=== PATIENT | female | born 1970 | race Caucasian/White ===

== ENCOUNTER → 2017-01-26 | Outpatient (CLI) | payer BC ==
[~2017-01-26] MED LIST: IOHEXOL 300 MG/ML 50 ML BTL (for RAD DIAG) OTHER ONE
--- NOTE | 2017-01-26 18:02 | RADRPT ---
EXAM DATE/TIME: 01/26/2017 15:24 [place] COMPARISON: No previous studies available for comparison. INDICATIONS : Fistula buttock FLUORO TIME: 1.3 minutes IMAGE COUNT: 2 MEDICAL HISTORY : fistula left buttock SURGICAL HISTORY : None. ENCOUNTER: Initial ACUITY: 1 week PAIN SCORE: 0/10 LOCATION: Left buttock FINDINGS: Under sterile condition and using aseptic technique and fluoroscopic guidance positive contrast was i njected into the fistula. The fistula along the left gluteal cleft was cannulated with a flexible 4 K[place] catheter. The cathet er could only be advanced to a centimeter or less into the opening. Omnipaque contrast was injected b ut pooled around the distal tip of the catheter. No connection is identified to any surrounding struc ture. CONCLUSION: Superficial opening along the left gluteal cleft with no fistulous connection to any structure identi fied. Sacha Perez MD on January 26, 2017 at 17:58 Board Certified Radiologist. This report was verified electronically.
== END ==
LOC: HRAD 14:52
PROVIDERS: ATTEND Colon & Rectal Surgery
DX: K61.1 Rectal abscess (principal)
CPT/HCPCS: 76080; Q9967; 20501